=== PATIENT | female | born 1990 | race Caucasian/White ===

== ENCOUNTER 2016-05-31 20:04 | Emergency (ER) | payer MEDICAID ==
--- NOTE | 2016-05-31 20:26 | ER Document Report ---
ED Medical Screen (RME) - General Chief Complaint: Palpitations Stated Complaint: HEART RATE FEELS OFF Time seen by provider: 20:23 Mode of Arrival: Ambulatory Information source: Patient Notes: 26-year-old female complaining of feeling rapid and irregular heartbeat twice tonight. Both episodes lasted less than a minute but were intense. This originally started 3 years ago. She has 2-3 episodes daily but they are minor and mild. I have greeted and performed a rapid initial assessment of this patient. A comprehensive ED assessment, evaluation of the patient, analysis of test results , and completion of the medical decision making process will be conducted by additional ED providers. TRAVEL OUTSIDE OF THE [place] IN LAST 30 DAYS: No - Related Data Allergies/Adverse Reactions: No Known Allergies Allergy (Unverified 09/10/15 01:21) Past Medical History - Past Medical History Cardiac Medical History: Reports: Hx Hypertension Endocrine Medical History: Reports: Hx Hypothyroidism Past Surgical History: Reports: Hx Orthopedic Surgery - Left Knee, Hx Tonsillectomy - Immunizations Hx Diphtheria, Pertussis, Tetanus Vaccination: Yes Physical Exam - Vital signs Vitals: Temp Pulse Resp BP Pulse Ox 98.0 F 101 H 18 127/76 H 100 05/31/16 20:11 05/31/16 20:11 05/31/16 20:11 05/31/16 20:11 05/31/16 20:11 Course - Vital Signs Vital signs: Temp Pulse Resp BP Pulse Ox 98.0 F 101 H 18 127/76 H 100 05/31/16 20:11 05/31/16 20:11 05/31/16 20:11 05/31/16 20:11 05/31/16 20:11
[2016-05-31 21:12] LABS: ABSOLUTE EOSINOPHILS # (AUTO) 0.1 10^3/uL (0.0-0.6); ABSOLUTE LYMPHOCYTES (AUTO) 1.7 10^3/uL (0.5-4.7); ABSOLUTE MONOCYTES (AUTO) 0.5 10^3/uL (0.1-1.4); ABSOLUTE NEUT (AUTO) 3.6 10^3/uL (1.7-8.2); BASOPHILS % (AUTO) 0.5 % (0-2); EOSINOPHILS % (AUTO) 1.9 % (0-6); HEMATOCRIT 36.5 % (36.0-47.0); HEMOGLOBIN 12.3 g/dL (12.0-15.5); HGB HCT DIFFERENCE 0.4; LYMPHOCYTES % (AUTO) 28.6 % (13-45); MEAN CORPUSCULAR HEMOGLOBIN 30.1 pg (27.0-33.4); MEAN CORPUSCULAR HGB CONC 33.7 g/dL (32.0-36.0); MEAN CORPUSCULAR VOLUME 89 fl (80-97); MONOCYTES % (AUTO) 8.6 % (3-13); RED BLOOD COUNT 4.08 10^6/uL (3.72-5.28); SEGMENTED NEUTROPHILS % (AUTO) 60.4 % (42-78)
[2016-05-31 21:23] LABS: ALANINE AMINOTRANSFERASE 22 U/L (9-52); ALBUMIN 4.3 g/dL (3.5-5.0); ALKALINE PHOSPHATASE 45 U/L (38-126); ANION GAP 10 (5-19); ASPARTATE AMINO TRANSFERASE 18 U/L (14-36); BILIRUBIN,TOTAL 0.7 mg/dL (0.2-1.3); BLOOD UREA NITROGEN 10 mg/dL (7-20); CALCIUM 9.4 mg/dL (8.4-10.2); CARBON DIOXIDE 28 mmol/L (22-30); CHLORIDE 103 mmol/L (98-107); CREATININE RESULT 0.75 mg/dL (0.52-1.25); GLUCOSE 98 mg/dL (75-110); MAGNESIUM 2.1 mg/dL (1.6-2.3); SODIUM 141.4 mmol/L (137-145); TOTAL PROTEIN 7.1 g/dL (6.3-8.2)
--- NOTE | 2016-05-31 22:43 | EKG REPORT ---
SEVERITY:- NORMAL ECG - SINUS RHYTHM : Confirmed by: Lizz Campo 31-May-2016 22:42:49
--- NOTE | 2016-05-31 23:20 | ER Document Report ---
ED General - General Chief Complaint: Palpitations Stated Complaint: HEART RATE FEELS OFF Mode of Arrival: Ambulatory Notes: Patient is a 26-year-old female with a past medical history of palpitations that have required use of a beta patt in the past but no current use who presents with an episode of palpitations that lasted for approximately 1 minute just prior to arrival. States that it felt like her heart was "beating out of her chest". States symptoms did resolve spontaneously. She is uncertain if anything triggered her symptoms. States she's had very similar symptoms in the past but they usually resolve after several seconds without intervention. States in the past she has required use of metoprolol which did control her symptoms but she has not been on this medication since moving to [place]. She denies any chest pain, shortness of breath, nausea or vomiting both during the episode and at this time. She does not currently have a primary care doctor. No history of DVT or pulmonary embolus. She does admit that she was smoking just prior to the onset of her symptoms and that she often has to symptoms around use of nicotine or large doses of caffeine. TRAVEL OUTSIDE OF THE [place] IN LAST 30 DAYS: No - Related Data Allergies/Adverse Reactions: No Known Allergies Allergy (Unverified 09/10/15 01:21) Past Medical History - General Information source: Patient - Social History Smoking Status: Current Every Day Smoker Chew tobacco use (# tins/day): No Frequency of alcohol use: Rare Drug Abuse: None Lives with: Spouse/Significant other Family History: Reviewed & Not Pertinent Patient has suicidal ideation: No Patient has homicidal ideation: No - Past Medical History Cardiac Medical History: Reports: Hx Hypertension Endocrine Medical History: Reports: Hx Hypothyroidism Renal/ Medical History: Denies: Hx Peritoneal Dialysis Past Surgical History: Reports: Hx Orthopedic Surgery - Left Knee, Hx Tonsillectomy - Immunizations Hx Diphtheria, Pertussis, Tetanus Vaccination: Yes Review of Systems - Review of Systems Notes: Constitutional: Negative for fever. HENT: Negative for sore throat. Eyes: Negative for visual changes. Cardiovascular: Negative for chest pain. Positive for palpitations Respiratory: Negative for shortness of breath. Gastrointestinal: Negative for abdominal pain, vomiting or diarrhea. Genitourinary: Negative for dysuria. Musculoskeletal: Negative for back pain. Skin: Negative for rash. Neurological: Negative for headaches, weakness or numbness. 10 point ROS negative except as marked above and in HPI. Physical Exam - Vital signs Vitals: Temp Pulse Resp BP Pulse Ox 98.0 F 101 H 18 127/76 H 100 05/31/16 20:11 05/31/16 20:11 05/31/16 20:11 05/31/16 20:11 05/31/16 20:11 Interpretation: Tachycardic Notes: PHYSICAL EXAMINATION: GENERAL: Well-appearing, well-nourished and in no acute distress. HEAD: Atraumatic, normocephalic. EYES: Pupils equal round and reactive to light, extraocular movements intact, sclera anicteric, conjunctiva are normal. ENT: nares patent, oropharynx clear without exudates. Moist mucous membranes. NECK: Normal range of motion, supple without lymphadenopathy LUNGS: Breath sounds clear to auscultation bilaterally and equal. No wheezes rales or rhonchi. HEART: Regular rate and rhythm without murmurs ABDOMEN: Soft, nontender, normoactive bowel sounds. No guarding, no rebound. No masses appreciated. EXTREMITIES: Normal range of motion, no pitting or edema. No cyanosis. NEUROLOGICAL: No focal neurological deficits. Moves all extremities spontaneously and on command. PSYCH: Normal mood, normal affect. SKIN: Warm, Dry, normal turgor, no rashes or lesions noted. Course - Re-evaluation Re-evalutation: 05/31/16 23:18 Patient presents with palpitations but is in no acute distress. Vitals within normal limits at time of arrival. EKG unremarkable with a sinus rhythm. Laboratories are unremarkable. Patient denies any chest pain, shortness of breath, or vomiting. At this time based on exam and history do not suspect a new onset arrhythmia, ACS, acute pulmonary embolus, aortic dissection. Patient encouraged to follow-up with their primary care physician as well as cardiology and a referral has been provided. At this time will discharge with return precautions and follow-up recommendations. Verbal discharge instructions given a the bedside and opportunity for questions given. Medication warnings reviewed. Patient is in agreement with this plan and has verbalized understanding of return precautions and the need for primary care follow-up in the next 24-72 hours. - Vital Signs Vital signs: Temp Pulse Resp BP Pulse Ox 98.6 F 79 16 114/74 99 06/01/16 00:04 06/01/16 00:04 06/01/16 00:04 06/01/16 00:04 06/01/16 00:04 - Laboratory Result Diagrams: 05/31/16 20:35 05/31/16 20:35 - EKG Interpretation by Me Additional EKG results interpreted by me: 05/31/16 23:19 Normal sinus rhythm. Rate 94. No ST elevations or depressions. QTC is 431. No ectopic beats. Discharge - Discharge Clinical Impression: Palpitations Condition: Good Disposition: HOME, SELF-CARE Additional Instructions: Please follow-up closely with cardiology regarding your palpitations. Return if you pass out, have shortness of breath, persistent vomiting, develop significant chest pain, or have any other symptoms that are concerning to you. Referrals: AUDREY REEVES NP [Primary Care Provider] - Follow up as needed BRENNA BECERRA MD [ACTIVE STAFF] - Follow up as needed
[2016-06-01 00:08] VITALS: BP 114/74
== END 2016-06-01 00:07 | disposition home or self-care (01) ==
LOC: ER 20:04
DX: R00.2 Palpitations (principal); F17.200 Nicotine dependence, unspecified, uncomplicated; I10 Essential (primary) hypertension; R00.0 Tachycardia, unspecified
CPT/HCPCS: 36415; 80053; 83735; 84443; 84703; 85025; 93005; 93010; 99285

== ENCOUNTER 2016-07-15 17:58 | Emergency (ER) | payer MEDICAID ==
[2016-07-15] MEDS ORDERED: PROCHLORPERAZINE MALEATE 10 MG TABLET PO ONE (18:47)
[2016-07-15] MEDS ORDERED: DIPHENHYDRAMINE HCL 25 MG CAPSULE PO ONE (18:47)
--- NOTE | 2016-07-15 18:50 | ER Document Report ---
ED Medical Screen (RME) - General Chief Complaint: Headache Stated Complaint: HEADACHE Notes: 26-year-old female patient complaining of headache today in the right temporal area. She is also having pain in the glands in her neck and pain in her right axilla. She is on chronic pain management with OxyContin and oxycodone. She does have tenderness to the right temporal area on palpation. Palpating her neck muscles she states it always hurts there. I have greeted and performed a rapid initial assessment of this patient. A comprehensive ED assessment and evaluation of the patient, analysis of test results and completion of the medical decision making process will be conducted by additional ED providers. TRAVEL OUTSIDE OF THE [place] IN LAST 30 DAYS: No - Related Data Allergies/Adverse Reactions: No Known Allergies Allergy (Verified 07/15/16 18:34) Past Medical History - Past Medical History Cardiac Medical History: Reports: Hx Hypertension Endocrine Medical History: Reports: Hx Hypothyroidism Renal/ Medical History: Denies: Hx Peritoneal Dialysis Past Surgical History: Reports: Hx Orthopedic Surgery - Left Knee, Hx Tonsillectomy - Immunizations Hx Diphtheria, Pertussis, Tetanus Vaccination: Yes Physical Exam - Vital signs Vitals: Temp Pulse Resp BP Pulse Ox 98.6 F 89 16 113/84 99 07/15/16 18:01 07/15/16 18:01 07/15/16 18:01 07/15/16 18:01 07/15/16 18:01 Course - Vital Signs Vital signs: Temp Pulse Resp BP Pulse Ox 98.6 F 89 16 113/84 99 07/15/16 18:01 07/15/16 18:01 07/15/16 18:01 07/15/16 18:01 07/15/16 18:01
[2016-07-15 19:13] LABS: ABSOLUTE EOSINOPHILS # (AUTO) 0.1 10^3/uL (0.0-0.6); ABSOLUTE LYMPHOCYTES (AUTO) 1.6 10^3/uL (0.5-4.7); ABSOLUTE MONOCYTES (AUTO) 0.4 10^3/uL (0.1-1.4); ABSOLUTE NEUT (AUTO) 3.8 10^3/uL (1.7-8.2); BASOPHILS % (AUTO) 0.3 % (0-2); EOSINOPHILS % (AUTO) 1.5 % (0-6); HEMATOCRIT 38.5 % (36.0-47.0); HGB HCT DIFFERENCE 0.5; LYMPHOCYTES % (AUTO) 27.3 % (13-45); MEAN CORPUSCULAR HEMOGLOBIN 29.9 pg (27.0-33.4); MEAN CORPUSCULAR HGB CONC 33.7 g/dL (32.0-36.0); MEAN CORPUSCULAR VOLUME 89 fl (80-97); MONOCYTES % (AUTO) 6.2 % (3-13); RED BLOOD COUNT 4.35 10^6/uL (3.72-5.28); RED CELL DISTRIBUTION WIDTH 12.2 % (11.5-14.0); SEGMENTED NEUTROPHILS % (AUTO) 64.7 % (42-78); WHITE BLOOD COUNT 5.8 10^3/uL (4.0-10.5)
[2016-07-15 19:27] LABS: ALANINE AMINOTRANSFERASE 23 U/L (9-52); ALBUMIN 4.6 g/dL (3.5-5.0); ALKALINE PHOSPHATASE 43 U/L (38-126); ANION GAP 13 (5-19); ASPARTATE AMINO TRANSFERASE 14 U/L (14-36); BILIRUBIN,DIRECT 0.2 mg/dL (0.0-0.4); BILIRUBIN,TOTAL 0.7 mg/dL (0.2-1.3); BLOOD UREA NITROGEN 11 mg/dL (7-20); CALCIUM 9.6 mg/dL (8.4-10.2); CARBON DIOXIDE 28 mmol/L (22-30); CHLORIDE 103 mmol/L (98-107); CREATININE RESULT 0.63 mg/dL (0.52-1.25); GLUCOSE 81 mg/dL (75-110); POTASSIUM 4.1 mmol/L (3.6-5.0); SODIUM 144.2 mmol/L (137-145); TOTAL PROTEIN 7.3 g/dL (6.3-8.2)
--- NOTE | 2016-07-15 20:54 | ER Document Report ---
ED General - General Chief Complaint: Headache Stated Complaint: HEADACHE Notes: Patient is a 26-year-old female without past medical history presents with bilateral anterior cervical lymphadenopathy and sore throat. States symptoms have been present for the past 48 hours. She's been trying ibuprofen with minimal improvement of her discomfort which she does describes a dull, constant aching pain worse on the right versus the left side. Pain is worsened by swallowing. She has not seen her primary care doctor regarding today's concerns. Denies any difficulty breathing or handling food or drink. No trauma to the area. TRAVEL OUTSIDE OF THE [place] IN LAST 30 DAYS: No - Related Data Allergies/Adverse Reactions: No Known Allergies Allergy (Verified 07/15/16 18:34) Past Medical History - General Information source: Patient - Social History Smoking Status: Current Every Day Smoker Frequency of alcohol use: None Drug Abuse: None Lives with: Spouse/Significant other Family History: Reviewed & Not Pertinent Patient has suicidal ideation: No Patient has homicidal ideation: No - Past Medical History Cardiac Medical History: Reports: Hx Hypertension Endocrine Medical History: Reports: Hx Hypothyroidism Renal/ Medical History: Denies: Hx Peritoneal Dialysis Past Surgical History: Reports: Hx Orthopedic Surgery - Left Knee, Hx Tonsillectomy - Immunizations Hx Diphtheria, Pertussis, Tetanus Vaccination: Yes Review of Systems - Review of Systems Notes: Constitutional: Negative for fever. HENT: Positive for sore throat. Eyes: Negative for visual changes. Cardiovascular: Negative for chest pain. Respiratory: Negative for shortness of breath. Gastrointestinal: Negative for abdominal pain, vomiting or diarrhea. Genitourinary: Negative for dysuria. Musculoskeletal: Negative for back pain. Skin: Negative for rash. Neurological: Negative for headaches, weakness or numbness. 10 point ROS negative except as marked above and in HPI. Physical Exam - Vital signs Vitals: Temp Pulse Resp BP Pulse Ox 98.6 F 89 16 113/84 99 07/15/16 18:01 07/15/16 18:01 07/15/16 18:01 07/15/16 18:01 07/15/16 18:01 Interpretation: Normal Notes: PHYSICAL EXAMINATION: GENERAL: Well-appearing, well-nourished and in no acute distress. HEAD: Atraumatic, normocephalic. EYES: Pupils equal round and reactive to light, extraocular movements intact, sclera anicteric, conjunctiva are normal. ENT: nares patent, oropharynx clear without exudates. Moist mucous membranes. NECK: Normal range of motion, bilateral anterior pericervical lymphadenopathy or prominent on the right. It is tender to palpation. Lymph nodes are mobile. LUNGS: Breath sounds clear to auscultation bilaterally and equal. No wheezes rales or rhonchi. HEART: Regular rate and rhythm without murmurs ABDOMEN: Soft, nontender, normoactive bowel sounds. No guarding, no rebound. No masses appreciated. EXTREMITIES: Normal range of motion, no pitting or edema. No cyanosis. NEUROLOGICAL: No focal neurological deficits. Moves all extremities spontaneously and on command. PSYCH: Normal mood, normal affect. SKIN: Warm, Dry, normal turgor, no rashes or lesions noted. Course - Re-evaluation Re-evalutation: 07/15/16 20:53 Patient presents with bilateral anterior cervical lymphadenopathy and sore throat. She is overall very well appearance, vitals within normal limits, no acute findings on exam other than anterior cervical lymphadenopathy. No findings on exam to suggest acute strep pharyngitis. She has no focal neurologic deficits on exam. She notes intermittent right-sided headache that is not present at this time. No indication for further labs or imaging. Suspect likely viral or allergic origin of her anterior cervical lymphadenopathy.At this time will discharge with return precautions and follow- up recommendations. Verbal discharge instructions given a the bedside and opportunity for questions given. Medication warnings reviewed. Patient is in agreement with this plan and has verbalized understanding of return precautions and the need for primary care follow-up in the next 24-72 hours. - Vital Signs Vital signs: Temp Pulse Resp BP Pulse Ox 98.6 F 85 18 106/70 99 07/15/16 18:01 07/15/16 21:15 07/15/16 21:15 07/15/16 21:15 07/15/16 21:15 - Laboratory Result Diagrams: 07/15/16 18:56 07/15/16 18:56 Discharge - Discharge Clinical Impression: Cervical lymphadenopathy, Sore throat Condition: Good Disposition: HOME, SELF-CARE Additional Instructions: Please return to the emergency room immediately if you experience any concerning symptoms including high fevers, severe headache, chest pain, difficulty breathing, abdominal pain, slurred speech, numbness or weakness in your arms or legs, or any other symptom that concerns you. Referrals: PINA CAPELLAN, CARDROOM ATTENDANT-C [Primary Care Provider] - Follow up as needed
[2016-07-15 21:16] VITALS: BP 106/70
== END 2016-07-15 21:16 | disposition home or self-care (01) ==
LOC: ER 17:58
DX: J02.9 Acute pharyngitis, unspecified (principal); R59.0 Localized enlarged lymph nodes; R51 Headache; F17.200 Nicotine dependence, unspecified, uncomplicated; I10 Essential (primary) hypertension; E03.9 Hypothyroidism, unspecified
CPT/HCPCS: 99284; 36415; 84703; 85025; 80053; J3490; S0183

== ENCOUNTER 2016-09-04 13:46 | Emergency (ER) | payer MEDICAID ==
--- NOTE | 2016-09-04 14:32 | ER Document Report ---
ED Medical Screen (RME) - General Chief Complaint: Leg Pain Stated Complaint: LEG PAIN Time Seen by Provider: 09/04/16 14:30 Notes: Patient says that she has had a painful swollen area of the right lower leg, lateral aspect getting worse over the past 3 months. At one time, there was a knot in the center of this painful swollen area. Last night, patient notes prominence in the size of the vein in the anterior medial right thigh. TRAVEL OUTSIDE OF THE [place] IN LAST 30 DAYS: No - Related Data Allergies/Adverse Reactions: No Known Allergies Allergy (Verified 09/04/16 13:56) Past Medical History - Past Medical History Cardiac Medical History: Reports: Hx Hypertension Endocrine Medical History: Reports: Hx Hypothyroidism Renal/ Medical History: Denies: Hx Peritoneal Dialysis Past Surgical History: Reports: Hx Orthopedic Surgery - Left Knee, Hx Tonsillectomy - Immunizations Hx Diphtheria, Pertussis, Tetanus Vaccination: Yes Physical Exam - Vital signs Vitals: Temp Pulse Resp BP Pulse Ox 98.2 F 87 14 118/69 97 09/04/16 13:56 09/04/16 13:56 09/04/16 13:56 09/04/16 13:56 09/04/16 13:56 Course - Vital Signs Vital signs: Temp Pulse Resp BP Pulse Ox 98.2 F 87 14 118/69 97 09/04/16 13:56 09/04/16 13:56 09/04/16 13:56 09/04/16 13:56 09/04/16 13:56
--- NOTE | 2016-09-04 16:38 | ER Document Report ---
ED Extremity Problem, Lower - General Mode of Arrival: Ambulatory Information source: Patient TRAVEL OUTSIDE OF THE [place] IN LAST 30 DAYS: No <SRI CLINTON - Last Filed: 09/04/16 21:35> <HA JIMÉNEZ - Last Filed: 09/05/16 01:10> - General Chief Complaint: Leg Pain Stated Complaint: LEG PAIN Time Seen by Provider: 09/04/16 14:30 Notes: Patient is a 26 year old female presenting to the emergency department for right calf pain. Patient states she feels like something is "crawling up her leg." Patient states she normally has tingling/numbness in her lower extremities bilaterally but the right one has been more painful lately. Patient states she easily bruises and she cannot wear a bra anymore because it causes pain to her ribs/chest. Patient is very thin appearing and states she has not been tested for a connective tissue disorder. Patient has a history of PVCs and she used to take beta-blockers for this but has not been taking them for some time now. Patient states her father has a history of rheumatoid arthritis. Patient has no known allergies. Patient states her primary care physician is [facility]. (SRI CLINTON) - Related Data Allergies/Adverse Reactions: No Known Allergies Allergy (Verified 09/04/16 13:56) Past Medical History - General Information source: Patient - Social History Smoking Status: Never Smoker Cigarette use (# per day): No Chew tobacco use (# tins/day): No Frequency of alcohol use: None Drug Abuse: None Family History: None Patient has suicidal ideation: No Patient has homicidal ideation: No - Past Medical History Cardiac Medical History: Reports: Hx Hypertension Endocrine Medical History: Reports: Hx Hypothyroidism Past Surgical History: Reports: Hx Orthopedic Surgery - Left Knee, Hx Tonsillectomy - Immunizations Hx Diphtheria, Pertussis, Tetanus Vaccination: Yes <SRI CLINTON - Last Filed: 09/04/16 21:35> Review of Systems - Review of Systems Constitutional: No symptoms reported EENT: No symptoms reported Cardiovascular: No symptoms reported Respiratory: No symptoms reported Gastrointestinal: No symptoms reported Genitourinary: No symptoms reported Female Genitourinary: No symptoms reported Musculoskeletal: See HPI Skin: No symptoms reported Hematologic/Lymphatic: No symptoms reported Neurological/Psychological: No symptoms reported -: Yes All other systems reviewed and negative <SRI CLINTON - Last Filed: 09/04/16 21:35> Physical Exam - Vital signs Interpretation: Normal - General General appearance: Appears well, Alert - HEENT Head: Normocephalic, Atraumatic Eyes: Normal Pupils: PERRL - Respiratory Respiratory status: No respiratory distress Chest status: Nontender Breath sounds: Normal Chest palpation: Normal - Cardiovascular Rhythm: Regular Heart sounds: Normal auscultation Murmur: No - Abdominal Inspection: Normal Distension: No distension Bowel sounds: Normal Tenderness: Nontender Organomegaly: No organomegaly - Back Back: Normal, Nontender - Extremities General upper extremity: Normal inspection, Nontender, Normal color, Normal ROM , Normal temperature General lower extremity: Normal inspection, Tender - R calf, Normal color, Normal ROM, Normal temperature, Normal weight bearing - Neurological Neuro grossly intact: Yes Cognition: Normal Orientation: AAOx4 [place] Coma Scale Eye Opening: Spontaneous [place] Coma Scale Verbal: Oriented [place] Coma Scale Motor: Obeys Commands Edl Coma Scale Total: 15 Speech: Normal Motor strength normal: LUE, RUE, LLE, RLE Sensory: Normal - Psychological Associated symptoms: Normal affect, Normal mood - Skin Skin Temperature: Warm Skin Moisture: Dry Skin Color: Normal <HA JIMÉNEZ - Last Filed: 09/05/16 01:10> - Vital signs Vitals: Temp Pulse Resp BP Pulse Ox 98.2 F 87 14 118/69 97 09/04/16 13:56 09/04/16 13:56 09/04/16 13:56 09/04/16 13:56 09/04/16 13:56 Course - Laboratory Result Diagrams: 09/04/16 17:35 09/04/16 17:35 <SRI CLINTON - Last Filed: 09/04/16 21:35> - Laboratory Result Diagrams: 09/04/16 17:35 09/04/16 17:35 - Diagnostic Test Radiology reviewed: Reports reviewed <HA JIMÉNEZ - Last Filed: 09/05/16 01:10> - Re-evaluation Re-evalutation: 09/04 Patient is a 26-year-old female who comes in with calf pain. No evidence for DVT on ultrasound. Patient has features consistent with a possible connective tissue disease. She is instructed to follow-up with her doctor. Patient was worried about blood clot and that was why she came in. No evidence for that today. Stable for discharge. Patient would like a note to return to work today. (HA JIMÉNEZ) - Vital Signs Vital signs: Temp Pulse Resp BP Pulse Ox 98.2 F 91 15 101/69 99 09/04/16 13:56 09/04/16 18:18 09/04/16 18:18 09/04/16 18:18 09/04/16 18:18 - Laboratory Laboratory results interpreted by me: 09/04/16 17:35 Glucose 134 H Discharge <SRI CLINTON - Last Filed: 09/04/16 21:35> <HA JIMÉNEZ - Last Filed: 09/05/16 01:10> - Discharge Clinical Impression: Superficial vein thrombosis Leg pain Qualifiers: Laterality: right Qualified Code(s): M79.604 - Pain in right leg Condition: Stable Disposition: HOME, SELF-CARE Instructions: Leg Pain Nonspecific ([facility]) Additional Instructions: Please talk to your doctor about being tested for a connective tissue disorder. Forms: Return to Work Scribe Attestation: 09/05/16 01:10 I personally performed the services described in the documentation, reviewed and edited the documentation which was dictated to the scribe in my presence, and it accurately records my words and actions. (HA JIMÉNEZ) Scribe Documentation - Scribe Written by Hakan:: Hakan Baugh, 09/04/16 18:56 acting as scribe for :: [place] <SRI CLINTON - Last Filed: 09/04/16 21:35>
[2016-09-04 17:58] LABS: ABSOLUTE EOSINOPHILS # (AUTO) 0.1 10^3/uL (0.0-0.6); ABSOLUTE MONOCYTES (AUTO) 0.3 10^3/uL (0.1-1.4); ABSOLUTE NEUT (AUTO) 3.8 10^3/uL (1.7-8.2); BASOPHILS % (AUTO) 0.6 % (0-2); EOSINOPHILS % (AUTO) 1.3 % (0-6); HEMATOCRIT 42.2 % (36.0-47.0); HEMOGLOBIN 13.8 g/dL (12.0-15.5); HGB HCT DIFFERENCE -0.8; LYMPHOCYTES % (AUTO) 19.6 % (13-45); MEAN CORPUSCULAR HEMOGLOBIN 29.6 pg (27.0-33.4); MEAN CORPUSCULAR HGB CONC 32.7 g/dL (32.0-36.0); MEAN CORPUSCULAR VOLUME 91 fl (80-97); MONOCYTES % (AUTO) 6.6 % (3-13); RED BLOOD COUNT 4.67 10^6/uL (3.72-5.28); RED CELL DISTRIBUTION WIDTH 11.9 % (11.5-14.0); SEGMENTED NEUTROPHILS % (AUTO) 71.9 % (42-78); WHITE BLOOD COUNT 5.2 10^3/uL (4.0-10.5)
--- NOTE | 2016-09-04 18:02 | RADIOLOGY REPORT (SQ) ---
EXAM DESCRIPTION: VENOUS UNILATERAL LOWER COMPLETED DATE/TIME: 09/04/2016 5:50 pm REASON FOR STUDY: Concern for clot in the vein of right leg COMPARISON: None. TECHNIQUE: Dynamic and static whatley scale and color images acquired of the right leg venous system. S elected spectral images acquired with additional compression and augmentation maneuvers. The contrala teral common femoral vein and saphenofemoral junction were also imaged. Images stored on PACS. LIMITATIONS: None. FINDINGS: COMMON FEMORAL: Normal phasicity, compression and augmentation. No visualized echogenic ma terial on whatley scale. No defects on color images. FEMORAL: Normal compression and augmentation. No visualized echogenic material on whatley scale. No defe cts on color images. POPLITEAL: Normal compression, augmentation. No visualized echogenic material on whatley scale. No defec ts on color images. CALF VESSELS: Normal compression, augmentation. No visualized echogenic material on whatley scale. No de fects on color images. GSV and SSV: Partially occlusive right small saphenous vein superficial clot. Greater saphenous varela nt. ANY DEEP VENOUS INSUFFICIENCY: Not evaluated. ANY EVIDENCE OF POPLITEAL CYST: No. OTHER: No other significant finding. CONTRALATERAL COMMON FEMORAL VEIN AND SAPHENOFEMORAL JUNCTION: Normal phasicity, compression and augmentation. No visualized echogenic material on whatley scale. No de fects on color images. IMPRESSION: 1. No DVT in the right lower extremity. 2. Superficial thrombus in the small saphenous vein is noted, nonocclusive clot. TECHNICAL DOCUMENTATION: JOB ID: [id number] [employer]- All Rights Reserved
[2016-09-04 18:03] LABS: APPEARANCE,URINE CLEAR; BILIRUBIN,URINE NEGATIVE (NEGATIVE); GLUCOSE, URINE NEGATIVE (NEGATIVE); KETONES,URINE NEGATIVE (NEGATIVE); LEUKOCYTE ESTERASE,URINE NEGATIVE (NEGATIVE); NITRITE,URINE NEGATIVE (NEGATIVE); PROTEIN,URINE NEGATIVE (NEGATIVE); UROBILINOGEN,URINE NEGATIVE mg/dL (<2.0)
[2016-09-04 18:15] LABS: ANION GAP 13 (5-19); BLOOD UREA NITROGEN 11 mg/dL (7-20); CALCIUM 9.8 mg/dL (8.4-10.2); CARBON DIOXIDE 27 mmol/L (22-30); CHLORIDE 101 mmol/L (98-107); GLUCOSE 134 mg/dL (75-110); POTASSIUM 4.6 mmol/L (3.6-5.0); SODIUM 141.1 mmol/L (137-145)
[2016-09-04 18:20] VITALS: BP 101/69
== END 2016-09-04 18:18 | disposition home or self-care (01) ==
LOC: ER 13:46
DX: I82.811 Embolism and thrombosis of superficial veins of right lower extremity (principal); M79.661 Pain in right lower leg; R20.0 Anesthesia of skin; R20.2 Paresthesia of skin; I10 Essential (primary) hypertension; Z82.61 Family history of arthritis
CPT/HCPCS: 36415; 80048; 81001; 81025; 85025; 93971; 99284

== ENCOUNTER 2016-09-05 16:16 | Emergency (ER) | payer MEDICAID ==
[2016-09-05] MEDS ORDERED: NORMAL SALINE 1000 ML 1,000 ML IV PRN (16:44)
--- NOTE | 2016-09-05 16:47 | ER Document Report ---
ED Medical Screen (RME) - General Chief Complaint: Leg Pain Stated Complaint: LEFT LEG PAIN Time Seen by Provider: 09/05/16 16:43 Mode of Arrival: Ambulatory Information source: Patient TRAVEL OUTSIDE OF THE [place] IN LAST 30 DAYS: No - HPI Patient complains to provider of: Chest pain, leg pain, generalized weakness Onset/Duration: Gradual Quality of pain: Achy Severity: Moderate Pain Level: 3 Associated Symptoms: Body/muscle aches, Chest pain, Shortness of breath, Weakness Exacerbated by: Denies Relieved by: Denies Similar symptoms previously: Yes Recently seen / treated by doctor: Yes Notes: 09/05/16 16:46 Patient is a 26-year-old female who presents to the emergency room complaining of generalized malaise, right-sided chest pain, bilateral lower extremity pain, with nausea, she reports it is painful when she takes a deep breath, so much so that she is no longer wearing a bra because it causes her some much discomfort, she was seen in this emergency room yesterday for right leg pain, had a lower extremity Doppler performed which showed a SVT but no DVT, she denies any cough , cold or congestion, no vomiting or diarrhea, no current , no known tick bites, no recent traveling, no sick contacts - Related Data Allergies/Adverse Reactions: No Known Allergies Allergy (Verified 09/05/16 16:38) Past Medical History - Past Medical History Cardiac Medical History: Reports: Hx Hypertension Endocrine Medical History: Reports: Hx Hypothyroidism Renal/ Medical History: Denies: Hx Peritoneal Dialysis Past Surgical History: Reports: Hx Orthopedic Surgery - Left Knee, Hx Tonsillectomy - Immunizations Hx Diphtheria, Pertussis, Tetanus Vaccination: Yes Physical Exam - Vital signs Vitals: Temp Pulse Resp BP Pulse Ox 97.9 F 76 18 105/75 97 09/05/16 16:21 09/05/16 16:21 09/05/16 16:21 09/05/16 16:21 09/05/16 16:21 Course - Vital Signs Vital signs: Temp Pulse Resp BP Pulse Ox 97.9 F 76 18 105/75 97 09/05/16 16:21 09/05/16 16:21 09/05/16 16:21 09/05/16 16:21 09/05/16 16:21
[2016-09-05 17:27] LABS: ABSOLUTE LYMPHOCYTES (AUTO) 1.1 10^3/uL (0.5-4.7); ABSOLUTE MONOCYTES (AUTO) 0.3 10^3/uL (0.1-1.4); BASOPHILS % (AUTO) 0.5 % (0-2); EOSINOPHILS % (AUTO) 0.8 % (0-6); HEMATOCRIT 43.7 % (36.0-47.0); HEMOGLOBIN 14.3 g/dL (12.0-15.5); HGB HCT DIFFERENCE -0.8; LYMPHOCYTES % (AUTO) 24.4 % (13-45); MEAN CORPUSCULAR HEMOGLOBIN 29.2 pg (27.0-33.4); MEAN CORPUSCULAR HGB CONC 32.7 g/dL (32.0-36.0); MEAN CORPUSCULAR VOLUME 89 fl (80-97); MONOCYTES % (AUTO) 6.2 % (3-13); RED BLOOD COUNT 4.89 10^6/uL (3.72-5.28); RED CELL DISTRIBUTION WIDTH 12.1 % (11.5-14.0); SEGMENTED NEUTROPHILS % (AUTO) 68.1 % (42-78); WHITE BLOOD COUNT 4.4 10^3/uL (4.0-10.5)
[2016-09-05 17:48] LABS: ALANINE AMINOTRANSFERASE 23 U/L (9-52); ALBUMIN 4.6 g/dL (3.5-5.0); ALKALINE PHOSPHATASE 49 U/L (38-126); ANION GAP 9 (5-19); ASPARTATE AMINO TRANSFERASE 16 U/L (14-36); BILIRUBIN,DIRECT 0.3 mg/dL (0.0-0.4); BILIRUBIN,TOTAL 0.9 mg/dL (0.2-1.3); BLOOD UREA NITROGEN 9 mg/dL (7-20); CALCIUM 9.5 mg/dL (8.4-10.2); CARBON DIOXIDE 30 mmol/L (22-30); CHLORIDE 103 mmol/L (98-107); CREATININE RESULT 0.66 mg/dL (0.52-1.25); GLUCOSE 114 mg/dL (75-110); POTASSIUM 4.3 mmol/L (3.6-5.0); SODIUM 142.1 mmol/L (137-145); TOTAL PROTEIN 7.7 g/dL (6.3-8.2)
[2016-09-05 17:50] LABS: C-REACTIVE PROTEIN < 5.0 mg/L (<10.0)
[2016-09-05 18:05] LABS: ERYTHROCYTE SEDIMENTATION RATE 10 mm/hr (0-20)
--- NOTE | 2016-09-05 18:18 | ER Document Report ---
ED General - General Mode of Arrival: Ambulatory TRAVEL OUTSIDE OF THE [place] IN LAST 30 DAYS: No <NAWAF NEGRON - Last Filed: 09/05/16 18:57> <JERIMICK - Last Filed: 09/05/16 20:41> - General Chief Complaint: Leg Pain Stated Complaint: LEFT LEG PAIN Time Seen by Provider: 09/05/16 16:43 Notes: Patient is a 26-year-old female comes to the ED complaining of left leg blotchiness 1 day. The blotchiness is more noticeable in her pale areas per patient. Non-painful, does not spread. Patient complains of chronic numbness/ tingling to her bilateral lower extremities on occasion. Patient states that she has been fatigued lately. Patient complains of chronic chest wall pain, joint pain, back pain, leg pains, & neck pain. Pt was eval'd yesterday for rt LE pain worse than usual and was found to have a SVT. Pt states that the lump has gone away since then on her leg and she no longer has the pain she felt yesterday. She does not like to take deep breaths because she will feel exacerbate the chest wall pain. Pt has been on oxycodone and oxycontin for 2 years (disc issues/scoliosis) in the back. Denies any fever, URI, sore throat, sob/dyspnea at rest, cp at rest, palpitations, syncope, abd pain, dysuria, vaginal discharge, or injury. No recent sick contacts or insect bites. Patient was directed by Dr. Ibrahim to get an eval for ?connective tissue disease by her PCM. Pt states that she stopped by her PCM today who cannot get her in until Monday at 11am. (NAWAF NEGRON) - Related Data Allergies/Adverse Reactions: No Known Allergies Allergy (Verified 09/05/16 16:38) Past Medical History - General Information source: Patient - Social History Smoking Status: Current Some Day Smoker Chew tobacco use (# tins/day): No Frequency of alcohol use: None Drug Abuse: None Family History: None - Past Medical History Cardiac Medical History: Reports: Hx Hypertension Endocrine Medical History: Reports: Hx Hypothyroidism Renal/ Medical History: Denies: Hx Peritoneal Dialysis Past Surgical History: Reports: Hx Orthopedic Surgery - Left Knee, Hx Tonsillectomy - Immunizations Hx Diphtheria, Pertussis, Tetanus Vaccination: Yes <NAWAF NEGRON - Last Filed: 09/05/16 18:57> Review of Systems <NAWAF NEGRON - Last Filed: 09/05/16 18:57> <MICK WILCOX - Last Filed: 09/05/16 20:41> - Review of Systems Notes: REVIEW OF SYSTEMS: CONSTITUTIONAL : Denies fever, chills, or sweats. Denies recent illness. EENT: Denies eye, ear, throat, or mouth pain or symptoms. Denies nasal or sinus congestion or discharge. Denies throat, tongue, or mouth swelling or difficulty swallowing. CARDIOVASCULAR: see hpi RESPIRATORY: see hpi GASTROINTESTINAL: see hpi GENITOURINARY: Denies difficulty urinating, painful urination, burning, frequency, blood in urine, or discharge. FEMALE GENITOURINARY: Denies vaginal bleeding, heavy or abnormal periods, irregular periods. Denies vaginal discharge or odor. MUSCULOSKELETAL: see hpi SKIN: see hpi NEUROLOGICAL: Denies confusion or altered mental status. Denies passing out or loss of consciousness. Denies dizziness or lightheadedness. Denies current headache. Denies weakness or paralysis or loss of use of either side. Denies problems with gait or speech. Denies seizures. ALL OTHER SYSTEMS REVIEWED AND NEGATIVE. Dictation was performed using [employer] voice recognition software (NAWAF NEGRON) Physical Exam <NAWAF NEGRON - Last Filed: 09/05/16 18:57> <MICK WILCOX - Last Filed: 09/05/16 20:41> - Vital signs Vitals: Temp Pulse Resp BP Pulse Ox 97.9 F 76 18 105/75 97 09/05/16 16:21 09/05/16 16:21 09/05/16 16:21 09/05/16 16:21 09/05/16 16:21 Notes: PHYSICAL EXAMINATION: GENERAL: Well-appearing, well-nourished and in no acute distress. Pt did become emotional at times stating she "does not want to be in pain anymore." HEAD: Atraumatic, normocephalic. EYES: Pupils equal round and reactive to light, extraocular movements intact, sclera anicteric, conjunctiva are normal. ENT: EAC clear b/l. TM's intact b/l without erythema, fluid, or perforation. Nares patent and without discharge. oropharynx clear without exudates. No tonsilar hypertrophy or erythema. Moist mucous membranes. No sinus tenderness. NECK: Normal range of motion, supple without lymphadenopathy. No rigidity. No meningismus. Chest: + tenderness to palpation of the chest wall primarily near the sternum, but also on the rt side. Symmetric rise. LUNGS: Breath sounds clear to auscultation bilaterally and equal. No wheezes rales or rhonchi. HEART: Regular rate and rhythm without murmurs, rubs, gallops. ABDOMEN: Soft, nontender, nondistended abdomen. No guarding, no rebound. No masses appreciated. Normal bowel sounds present. No CVA tenderness bilaterally. Musculoskeletal: FROM to passive/active. Strength 5+/5. Back: FROM to passive/active. Non-tender to palp. Strength 5+/5. mild scoliosis. Extremities: No cyanosis, clubbing, or edema b/l. Peripheral pulses 2+. Capillary refill less than 3 seconds. Katherine neg. b/l. No warmth/erythema/ tenderness. NEUROLOGICAL: Cranial nerves grossly intact. Normal speech, normal gait. Normal motor exams. Dec sensation to the medial calf b/l to light touch. Reflexes 2+ b/l peripherally. PSYCH: emotional mood, normal affect. SKIN: Warm, Dry, normal turgor, no rashes or lesions noted. (NAWAF NEGRON) Course - Laboratory Result Diagrams: 09/05/16 17:18 09/05/16 17:18 <NAWAF NEGRON - Last Filed: 09/05/16 18:57> - Laboratory Result Diagrams: 09/05/16 17:18 09/05/16 17:18 <MICK WILCOX - Last Filed: 09/05/16 20:41> - Re-evaluation Re-evalutation: 09/05/16 18:29 Patient is an afebrile, well-hydrated, 26yo female who presents with nonspecific leg/jt/chest pains. Chest wall tenderness on exam. Katherine neg b/l without unilateral swelling or tenderness. Vitals are stable. No acute distress. Mcculloch score: 3 (pre-test probability score of <10% for PE). PERC score: 0 (pre-test probability score of <1%). CBC and CMP are unremarkable. CT of the chest: According to her eval yesterday she had a SVT (discomfort of which has since resolved based on today's H&P). She has an appointment scheduled with her PCM in 2 days. I question if she has any hypersensitivity as she has been on oxycodone and oxycontin for the last 2 years (per pt). Reviewed with her that she may read about the possibility and discuss with her PCM ([facility]) about possible detox plan. She is to also consider connective tissue disease as Dr. Ibrahim recommended as well at her visit yesterday. May have PCM consider EMG as well. After performing a Medical Screening Examination, I estimate there is LOW risk for RUPTURED ESOPHAGUS, PNEUMOTHORAX, PULMONARY EMBOLISM, ACUTE CORONARY SYNDROME, OR THORACIC AORTIC DISSECTION, thus I consider the discharge disposition reasonable. I have reevaluated this patient multiple times and no significant life threatening changes are noted. The patient and I have discussed the diagnosis and risks, and we agree with discharging home with close follow-up. We also discussed returning to the Emergency Department immediately if new or worsening symptoms occur. We have discussed the symptoms which are most concerning (e.g., bloody sputum, worsening pain or shortness of breath) that necessitate immediate return. (NAWAF NEGRON) 09/05/16 CTA read as normal by radiology no acute findings, no chronic findings. Patient 's workup unremarkable, area on her leg where she has SVT does not appear to be infected with no abnormal heat or discoloration or even tenderness to the area. Patient states that she already has a follow-up with her primary care for additional testing, states that she was specifically tested for rheumatoid arthritis because of family history but she has not had an autoimmune panel or any other workup. After discussion with patient, because of her ongoing pains across her chest and in her joints patient will be given a dose of Solu-Medrol, a very short small taper of prednisone, and she will perform her follow-up, I did discuss return precautions as well including swelling of the leg, fever, difficulty breathing, or any other concerning symptoms. Patient states understanding and agreement. (MICK WILCOX) - Vital Signs Vital signs: Temp Pulse Resp BP Pulse Ox 97.9 F 76 18 105/75 97 09/05/16 16:21 09/05/16 16:21 09/05/16 16:21 09/05/16 16:21 09/05/16 16:21 - Laboratory Laboratory results interpreted by me: 09/05/16 17:18 Glucose 114 H Discharge <NAWAF NEGRON - Last Filed: 09/05/16 18:57> <JOSÉ ANTONIOJOLEENMICK - Last Filed: 09/05/16 20:41> - Discharge Clinical Impression: Discoloration of skin Chest pain Qualifiers: Chest pain type: unspecified Qualified Code(s): R07.9 - Chest pain, unspecified Joint pain Qualifiers: Joint pain location: unspecified Qualified Code(s): M25.50 - Pain in unspecified joint Condition: Stable Disposition: HOME, SELF-CARE Additional Instructions: Your workup shows no acute abnormality. Take the prednisone as directed. Continue current medications. Follow up with your Provider as planned. Consider autoimmune and connective tissue disorder workup and referral. Return to the ED for any concerning or worsening symptoms - fever, difficulty breathing, leg swelling, etc. Prescriptions: Prednisone [Deltasone 10 mg Tablet] 10 mg PO ASDIR PRN #21 tablet PRN Reason:
--- NOTE | 2016-09-05 19:33 | RADIOLOGY REPORT (SQ) ---
EXAM DESCRIPTION: CTA CHEST COMPLETED DATE/TIME: 09/05/2016 7:22 pm REASON FOR STUDY: SOB COMPARISON: None. TECHNIQUE: CT scan of the chest performed using helical scanning technique with dynamic intravenous contrast injection. Images reviewed with lung, soft tissue and bone windows. Reconstructed coronal and sagittal MPR images reviewed. Additional 3 dimensional post-processing performed to develop Maximal Intensity Projection images (ID P). All images stored on PACS. All CT scanners at this facility use dose modulation, iterative reconstruction, and/or weight based d osing when appropriate to reduce radiation dose to as low as reasonably achievable (ALARA). [facility]: Dose Right [facility]: CareDose [facility]: Dose Right [facility]: Teradose 4D [facility]: Bitcast CONTRAST TYPE AND DOSE: contrast/concentration: Isovue 370.00 mg/ml; Total Contrast Delivered: 62.0 ml; Total Saline Delivered: 100.0 ml RENAL FUNCTION: GFR > 60. RADIATION DOSE: 27.55 mGy. LIMITATIONS: None. FINDINGS: LUNGS AND PLEURA: No masses, infiltrates, pneumothorax. No pleural effusions, calcificati ons. AORTA AND GREAT VESSELS: No aneurysm or dissection. HEART: No pericardial effusion. PULMONARY ARTERIES: No emboli visualized in the main pulmonary arteries or the segmental branches. HILAR AND MEDIASTINAL STRUCTURES: No identified masses or abnormal nodes. HARDWARE: None in the chest. UPPER ABDOMEN: No significant findings. Limited exam. THYROID AND OTHER SOFT TISSUES: No masses. No adenopathy. BONES: No acute or significant finding. 3D MIPS: Confirm above findings. OTHER: No other significant finding. IMPRESSION: No emboli visualized in the main pulmonary arteries or the segmental branches. TECHNICAL DOCUMENTATION: JOB ID: [id number] Quality ID # [id number]: Final reports with documentation of one or more dose reduction techniques (e.g., Au tomated exposure control, adjustment of the mA and/or kV according to patient size, use of iterative reconstruction technique) 2010 [employer]- All Rights Reserved
[2016-09-05] MEDS ORDERED: METHYLPREDNISOLONE INJ 125 MG/2 ML SDV IV ONE (20:05)
[2016-09-05 21:12] VITALS: BP 95/62
== END 2016-09-05 21:11 | disposition home or self-care (01) ==
LOC: ER 16:16
DX: L98.8 Other specified disorders of the skin and subcutaneous tissue (principal); R07.9 Chest pain, unspecified; M25.50 Pain in unspecified joint; M54.9 Dorsalgia, unspecified; M79.605 Pain in left leg; M79.604 Pain in right leg; M54.2 Cervicalgia; F17.210 Nicotine dependence, cigarettes, uncomplicated; I10 Essential (primary) hypertension; E03.9 Hypothyroidism, unspecified; M41.9 Scoliosis, unspecified
CPT/HCPCS: 99284; 96361; 96374; 36415; 85025; 85652; 86140; 80053; 71275; J2930; J7030

== ENCOUNTER 2016-10-27 13:55 | Emergency (ER) | payer MEDICAID ==
[2016-10-27 14:06] VITALS: BP 123/73
--- NOTE | 2016-10-27 14:30 | ER Document Report ---
ED Medical Screen (RME) - General Chief Complaint: Abdominal Pain Stated Complaint: ABDOMINAL PAIN Time Seen by Provider: 10/27/16 14:04 Mode of Arrival: Ambulatory Information source: Patient TRAVEL OUTSIDE OF THE [place] IN LAST 30 DAYS: No - HPI Patient complains to provider of: Abdominal pain Onset: Yesterday Notes: 10/27/16 14:29 Patient is a 26-year-old female who presents to the emergency room complaining of pain in the right lower portion of her abdomen that started yesterday and increased today, it is associated with nausea but no vomiting or diarrhea, she does have crampy lower abdominal pain at times, and reports a sensation of something popping area earlier today, causing her to require pulling the car over to the side of the road just prior to coming to the emergency room - Related Data Allergies/Adverse Reactions: No Known Allergies Allergy (Verified 10/27/16 14:02) Past Medical History - Past Medical History Cardiac Medical History: Reports: Hx Hypertension Endocrine Medical History: Reports: Hx Hypothyroidism Renal/ Medical History: Denies: Hx Peritoneal Dialysis Past Surgical History: Reports: Hx Orthopedic Surgery - Left Knee, Hx Tonsillectomy - Immunizations Hx Diphtheria, Pertussis, Tetanus Vaccination: Yes Physical Exam - Vital signs Vitals: Temp Pulse Resp BP Pulse Ox 98.7 F 88 16 123/73 99 10/27/16 14:02 10/27/16 14:02 10/27/16 14:02 10/27/16 14:02 10/27/16 14:02 Course - Vital Signs Vital signs: Temp Pulse Resp BP Pulse Ox 98.7 F 88 16 123/73 99 10/27/16 14:02 10/27/16 14:02 10/27/16 14:02 10/27/16 14:02 10/27/16 14:02
[2016-10-27 14:52] LABS: ABSOLUTE EOSINOPHILS # (AUTO) 0.1 10^3/uL (0.0-0.6); ABSOLUTE LYMPHOCYTES (AUTO) 1.6 10^3/uL (0.5-4.7); ABSOLUTE MONOCYTES (AUTO) 0.4 10^3/uL (0.1-1.4); ABSOLUTE NEUT (AUTO) 3.1 10^3/uL (1.7-8.2); BASOPHILS % (AUTO) 0.5 % (0-2); EOSINOPHILS % (AUTO) 1.2 % (0-6); HEMATOCRIT 40.6 % (36.0-47.0); HEMOGLOBIN 13.9 g/dL (12.0-15.5); HGB HCT DIFFERENCE 1.1; LYMPHOCYTES % (AUTO) 31.1 % (13-45); MEAN CORPUSCULAR HEMOGLOBIN 30.5 pg (27.0-33.4); MEAN CORPUSCULAR HGB CONC 34.1 g/dL (32.0-36.0); MEAN CORPUSCULAR VOLUME 90 fl (80-97); MONOCYTES % (AUTO) 7.1 % (3-13); RED BLOOD COUNT 4.54 10^6/uL (3.72-5.28); RED CELL DISTRIBUTION WIDTH 12.3 % (11.5-14.0); SEGMENTED NEUTROPHILS % (AUTO) 60.1 % (42-78); WHITE BLOOD COUNT 5.2 10^3/uL (4.0-10.5)
[2016-10-27 14:58] LABS: APPEARANCE,URINE CLEAR; BILIRUBIN,URINE NEGATIVE (NEGATIVE); GLUCOSE, URINE NEGATIVE (NEGATIVE); KETONES,URINE NEGATIVE (NEGATIVE); LEUKOCYTE ESTERASE,URINE NEGATIVE (NEGATIVE); NITRITE,URINE NEGATIVE (NEGATIVE); PROTEIN,URINE NEGATIVE (NEGATIVE); URINE SPECIFIC GRAVITY 1.012; UROBILINOGEN,URINE NEGATIVE mg/dL (<2.0)
[2016-10-27 15:08] LABS: ALANINE AMINOTRANSFERASE 22 U/L (9-52); ALBUMIN 4.9 g/dL (3.5-5.0); ALKALINE PHOSPHATASE 50 U/L (38-126); ANION GAP 12 (5-19); ASPARTATE AMINO TRANSFERASE 31 U/L (14-36); BILIRUBIN,DIRECT 0.3 mg/dL (0.0-0.4); BLOOD UREA NITROGEN 9 mg/dL (7-20); CALCIUM 9.3 mg/dL (8.4-10.2); CARBON DIOXIDE 26 mmol/L (22-30); CHLORIDE 103 mmol/L (98-107); CREATININE RESULT 0.64 mg/dL (0.52-1.25); GLUCOSE 99 mg/dL (75-110); LIPASE 47.4 U/L (23-300); POTASSIUM 3.9 mmol/L (3.6-5.0); TOTAL PROTEIN 8.3 g/dL (6.3-8.2)
[2016-10-27] MEDS ORDERED: ONDANSETRON 4 MG TAB.RAPDIS SL ONE (15:59)
[2016-10-27] MEDS ORDERED: KETOROLAC TROMETHAMINE 60 MG/2 ML SDV IM ONE (15:59)
[2016-10-27] MEDS ORDERED: HYDROCODONE/ACETAMINOPHEN 5-325 MG TABLET PO ONE (16:02)
--- NOTE | 2016-10-27 19:56 | RADIOLOGY REPORT (SQ) ---
EXAM DESCRIPTION: U/S NON OB PEL TV W/DOPPLER COMPLETED DATE/TIME: 10/27/2016 7:41 pm REASON FOR STUDY: bilateral pelvic pain COMPARISON: None. TECHNIQUE: Dynamic and static grayscale images acquired of the pelvis via transvaginal approach and recorded on PACS. Additional selected color Doppler and spectral images recorded. LIMITATIONS: None. FINDINGS: UTERUS: Contour normal. No mass. ENDOMETRIAL STRIPE: No focal or generalized thickening. No masses. CERVIX: No nabothian cysts. RIGHT OVARY: No abnormal masses. RIGHT OVARY DOPPLER: Normal arterial vascular flow without evidence for torsion. LEFT OVARY: Complex cyst seen in the left ovary with multiple septi measuring 3.0 x 2.9 x 2.5 cm. LEFT OVARY DOPPLER: Normal arterial vascular flow without evidence for torsion. FREE FLUID: None noted. OTHER: No other significant finding. MEASUREMENTS: UTERUS: 9.1 x 4.8 x 4.2 cm ENDOMETRIAL STRIPE: 13 mm RIGHT OVARY: 2.0 x 2.4 x 2.2 cm LEFT OVARY: 4.3 x 3.5 x 3.2 cm IMPRESSION: Complex left ovarian cyst with multiple set they measuring 3.0 x 2.9 x 2.5 cm. Otherwis e unremarkable study. Follow-up recommendations below. COMMENT: Followup of asymptomatic indeterminate cysts detected by ultrasound in POSTMENOPAUSAL terese ents Findings suggestive of but not classic for hemorrhagic cyst, endometrioma or dermoid: *Consider surgical evaluation Single thin septation or focal wall calcification: *Same as simple cyst, based on size Multiple septations in a cyst: *Consider surgical evaluation Nodule in a cyst: *Consider surgical evaluation or MRI if no blood flow in nodule *Consider surgical evaluation if blood flow in nodule Note: If cyst is clinically symptomatic or otherwise concerning, other followup may be warranted. Menopause is considered age 50 by radiologist unless age of last period is known. Based on recommenda tions of the Society for Radiologists in Ultrasound Consensus Conference Statement 2010 on management of asymptomatic ovarian and other adnexal cysts imaged at ultrasound. TECHNICAL DOCUMENTATION: JOB ID: [id number] [employer]- All Rights Reserved
[2016-10-27] MEDS ORDERED: LIDOCAINE 1% INJ-PF (10 MG/ML) 30 ML SDV INJ ONE (20:09)
[2016-10-27] MEDS ORDERED: AZITHROMYCIN 250 MG TABLET PO ONE (20:09)
[2016-10-27] MEDS ORDERED: CEFTRIAXONE INJ 250 MG VIAL IM ONE (20:09)
--- NOTE | 2016-10-27 20:15 | ER Document Report ---
ED GI/ - General Chief Complaint: Abdominal Pain Stated Complaint: ABDOMINAL PAIN Time Seen by Provider: 10/27/16 14:04 Mode of Arrival: Ambulatory TRAVEL OUTSIDE OF THE [place] IN LAST 30 DAYS: No - HPI Patient complains to provider of: Pelvic pain, Vaginal discharge Onset: Yesterday Quality of pain: Sharp Severity at maximum: Moderate Severity in ED: Mild Pain Level: 2 Location: Pelvis - right Vaginal bleeding (Compared to normal period): None Associated symptoms: Vaginal discharge - pel, Other - pelvic pain worse on the right Exacerbated by: Movement, Walking Relieved by: Denies Similar symptoms previously: No Recently seen / treated by doctor: No - Related Data Allergies/Adverse Reactions: No Known Allergies Allergy (Verified 10/27/16 14:02) Past Medical History - General Information source: Patient - Social History Smoking Status: Current Every Day Smoker Chew tobacco use (# tins/day): No Frequency of alcohol use: None Drug Abuse: None Lives with: Family Family History: None Patient has suicidal ideation: No Patient has homicidal ideation: No - Past Medical History Cardiac Medical History: Reports: Hx Hypertension Pulmonary Medical History: Reports: None Neurological Medical History: Reports: None Endocrine Medical History: Reports: Hx Hypothyroidism Renal/ Medical History: Reports: Hx Ovarian Cysts Malignancy Medical History: Reports: None GI Medical History: Reports: None Musculoskeltal Medical History: Reports None Skin Medical History: Reports None Psychiatric Medical History: Reports: None Traumatic Medical History: Reports: None Infectious Medical History: Reports: None Past Surgical History: Reports: Hx Orthopedic Surgery - Left Knee, Hx Tonsillectomy - Immunizations Hx Diphtheria, Pertussis, Tetanus Vaccination: Yes Review of Systems - Review of Systems Constitutional: No symptoms reported EENT: No symptoms reported Cardiovascular: No symptoms reported Respiratory: No symptoms reported Gastrointestinal: Abdominal pain Genitourinary: No symptoms reported Female Genitourinary: Vaginal discharge, Other - pelvic pain Musculoskeletal: No symptoms reported Skin: No symptoms reported Hematologic/Lymphatic: No symptoms reported Neurological/Psychological: No symptoms reported -: Yes All other systems reviewed and negative Physical Exam - Vital signs Vitals: Temp Pulse Resp BP Pulse Ox 98.7 F 88 16 123/73 99 10/27/16 14:02 10/27/16 14:02 10/27/16 14:02 10/27/16 14:02 10/27/16 14:02 Interpretation: Normal - General General appearance: Appears well, Alert - HEENT Head: Normocephalic, Atraumatic Eyes: Normal Pupils: PERRL - Respiratory Respiratory status: No respiratory distress Chest status: Nontender Breath sounds: Normal Chest palpation: Normal - Cardiovascular Rhythm: Regular Heart sounds: Normal auscultation Murmur: No - Abdominal Inspection: Normal Distension: No distension Bowel sounds: Normal Tenderness: Nontender Organomegaly: No organomegaly - Genitourinary External exam: Normal Speculum exam: Cervix closed, Vaginal discharge - green Vaginal bleeding: None Bimanuel exam: Adnexal mass - Back Back: Normal, Nontender - Extremities General upper extremity: Normal inspection, Nontender, Normal color, Normal ROM , Normal temperature General lower extremity: Normal inspection, Nontender, Normal color, Normal ROM , Normal temperature, Normal weight bearing. No: Katherine's sign - Neurological Neuro grossly intact: Yes Cognition: Normal Orientation: AAOx4 Del Coma Scale Eye Opening: Spontaneous Krebs Coma Scale Verbal: Oriented Del Coma Scale Motor: Obeys Commands Krebs Coma Scale Total: 15 Speech: Normal Motor strength normal: LUE, RUE, LLE, RLE Sensory: Normal - Psychological Associated symptoms: Normal affect, Normal mood - Skin Skin Temperature: Warm Skin Moisture: Dry Skin Color: Normal Course - Re-evaluation Re-evalutation: 10/27/16 21:50discussed lab results and ultrasound results with patient and written report given to patient for follow up. - Vital Signs Vital signs: Temp Pulse Resp BP Pulse Ox 98.7 F 88 16 123/73 99 10/27/16 14:02 10/27/16 14:02 10/27/16 14:02 10/27/16 14:02 10/27/16 14:02 - Laboratory Result Diagrams: 10/27/16 14:42 10/27/16 14:42 Laboratory results interpreted by me: 10/27/16 14:42 Total Protein 8.3 H - Diagnostic Test Radiology reviewed: Image reviewed, Reports reviewed Discharge - Discharge Clinical Impression: Pelvic pain, Vaginal discharge Ovarian cyst Qualifiers: Laterality: left Qualified Code(s): N83.202 - Unspecified ovarian cyst, left side Condition: Stable Disposition: HOME, SELF-CARE Additional Instructions: PELVIC PAIN: There are many causes of pain in the pelvic area. The cause could be the tubes, ovaries, uterus, intestines, appendix, pelvic muscles and connective tissue, or the urinary tract. The cause of your pelvic pain is not clear. However, it seems safe to treat you outside the hospital. If the pain sounds like a temporary problem, we sometimes wait to see if it goes away. Other patients may need additional tests, such as pelvic ultrasound or cultures. Conditions may change. Call us or come back for reexamination if any problems occur, such as: (1) Pain that becomes more severe, steady, or becomes concentrated in one specific area. Also, pain that is more severe with movement or coughing. (2) Vomiting that persists or becomes more frequent. (3) Blood in the vomitus, urine, or bowel movements. Blood in the stool may have a tarry or black appearance. (4) Shaking chills or fever greater than 100 degrees. (5) The abdomen becomes more distended or swollen. (6) Bowel movements cease. (7) Heavy vaginal bleeding. Ovarian Cyst Your examination shows the presence of an ovarian cyst. This is a ball of fluid attached to the ovary. Ovarian cysts in women of child-bearing age are usually innocent. However, the cyst may cause pain when it grows or bursts. An innocent ovarian cyst will usually go away by itself. When the cyst becomes painful, you should rest. Pain medication may be required. Some women find a hot water bottle soothing. The pain usually resolves within one or two days. After menopause, an ovarian cyst may mean a tumor, and requires more aggressive evaluation -- usually surgery is recommended to remove or biopsy the cyst. A very large cyst requires evaluation at any age. Most cysts (even the innocent ones) require follow-up examination. Call the doctor or return at any time if the pain increases significantly, if you become faint, or if you experience vaginal bleeding. CEPHALOSPORINS: An antibiotic of the cephalosporin class has been prescribed. This type of antibiotic covers a wide variety of infections, including those of the skin, lungs, middle ear, and urinary tract. This antibiotic is somewhat similar to the penicillin family. In rare cases , a person who is allergic to penicillin will also be allergic to this medication. If you have had a severe allergic reaction to penicillin, and have not taken this antibiotic since that time, notify your doctor. Antibiotics which cover many germs ("broad spectrum" antibiotics) are more likely to cause diarrhea or "yeast" infections. Women prone to vaginal yeast problems may suffer an attack after taking this antibiotic. In infants, oral thrush (white spots "stuck" on the cheek) or yeast diaper rash may result. See your doctor if these problems occur. Call the doctor at once if you develop hives, itching, shortness of breath , or lightheadedness. AZITHROMYCIN: Azithromycin (Zithromax) is a broad spectrum antibiotic in the same class as erythromycin. It can treat a variety of bacterial infections, but is most frequently used for respiratory infections. Azithromycin is extremely long-lasting. It accumulates in body tissues and continues to kill bacteria for many days. In order to improve absorption, Azithromycin should be taken at least one hour before or two hours after a meal. It does not have the same strong tendency to upset the stomach as erythromycin and is usually very well tolerated. Patients who have had a rash or other true allergic reactions to erythromycin should not take this medication. Call if you develop gastrointestinal distress, severe diarrhea, rash, hives, itching, or shortness of breath. FOLLOW-UP CARE: If you have been referred to a physician for follow-up care, call the physician s office for an appointment as you were instructed or within the next two days. If you experience worsening or a significant change in your symptoms, notify the physician immediately or return to the Emergency Department at any time for re-evaluation. [employer] tomorrow and schedule follow-up appointment for your ovarian cyst. Please call [phone] before 10:00 PM for the results of your GC and chlamydia test or after 10:00 in the morning Forms: Return to Work Referrals: [facility] [Provider Group] - Follow up as needed
[2016-10-27 20:40] LABS: CHLAM PCR NOT DETECTED (NOT DETECT)
== END 2016-10-27 21:22 | disposition home or self-care (01) ==
LOC: ER 13:55
DX: N83.202 Unspecified ovarian cyst, left side (principal); R10.2 Pelvic and perineal pain; N89.8 Other specified noninflammatory disorders of vagina; F17.200 Nicotine dependence, unspecified, uncomplicated
CPT/HCPCS: 99284; 36415; 87086; 87210; 84702; 83690; 85025; 80053; 81001; 87491; 87591; 76830; 93976; S0119

== ENCOUNTER 2017-03-03 03:56 | Emergency (ER) | payer MEDICAID ==
[2017-03-03] MEDS ORDERED: KETOROLAC TROMETHAMINE INJ/PF 30 MG/1 ML SDV IV ONE (04:40)
[2017-03-03] MEDS ORDERED: NORMAL SALINE 1000 ML 1,000 ML IV ONE (04:41)
[2017-03-03] MEDS ORDERED: ONDANSETRON HCL INJ/PF 4 MG/2 ML SDV IV ONE (04:41)
--- NOTE | 2017-03-03 04:43 | ER Document Report ---
ED GI/ - General Chief Complaint: Abdominal Pain Stated Complaint: ABDOMINAL PAIN Time Seen by Provider: 03/03/17 04:20 Notes: Patient is a 26-year-old female that comes emergency department for chief complaint of right sided abdominal pain, she states pain has been present since last Monday, last Monday [facility]), she states that she only had bleeding for 3 days after and has stopped bleeding but she has had pain that will not stop. She states she feels swollen. She reports nausea but denies vomiting. She denies fever, dysuria. Past medical history of lower back injury after accident , takes oxycodone daily for pain, is not on a stool softener. She had a bowel movement 2 days ago which was normal for her. She normally has one every few days. TRAVEL OUTSIDE OF THE [place] IN LAST 30 DAYS: No - Related Data Allergies/Adverse Reactions: ketorolac [From Toradol] Adverse Reaction (Verified 03/03/17 05:27) NSAIDS (Non-Steroidal Anti-Inflamma Adverse Reaction (Verified 03/03/17 05:27) Home Medications: Current Home Medications Oxycodone HCl 5 mg PO Q6HP PRN 03/03/17 [History] Oxycodone HCl [Oxycontin] 1 tab PO Q12H 03/03/17 [History] Past Medical History - General Information source: Patient - Social History Smoking Status: Never Smoker Frequency of alcohol use: None Drug Abuse: None Lives with: Family Family History: None Patient has suicidal ideation: No Patient has homicidal ideation: No - Past Medical History Cardiac Medical History: Reports: Hx Hypertension Endocrine Medical History: Reports: Hx Hypothyroidism Renal/ Medical History: Reports: Hx Ovarian Cysts. Denies: Hx Peritoneal Dialysis Past Surgical History: Reports: Hx Orthopedic Surgery - Left Knee, Hx Tonsillectomy - Immunizations Hx Diphtheria, Pertussis, Tetanus Vaccination: Yes Review of Systems - Review of Systems Constitutional: No symptoms reported EENT: No symptoms reported Cardiovascular: No symptoms reported Respiratory: No symptoms reported Gastrointestinal: See HPI Genitourinary: See HPI Female Genitourinary: See HPI Musculoskeletal: No symptoms reported Skin: No symptoms reported Hematologic/Lymphatic: No symptoms reported Neurological/Psychological: No symptoms reported Physical Exam - Vital signs Vitals: Temp Pulse Resp BP Pulse Ox 97.8 F 88 18 130/72 H 99 03/03/17 03:56 03/03/17 03:56 03/03/17 03:56 03/03/17 03:56 03/03/17 03:56 Interpretation: Normal - General General appearance: Appears well, Alert In distress: None - HEENT Head: Normocephalic, Atraumatic Eyes: Normal Pupils: PERRL - Respiratory Respiratory status: No respiratory distress Chest status: Nontender Breath sounds: Normal Chest palpation: Normal - Cardiovascular Rhythm: Regular Heart sounds: Normal auscultation Murmur: No - Abdominal Inspection: Normal Distension: No distension. No: Distended Bowel sounds: Normal Tenderness: Tender - Generalized tenderness over the upper and lower abdomen, nonspecific, no guarding. No: Guarding Organomegaly: No organomegaly - Back Back: Normal, Nontender. No: Tender - Extremities General upper extremity: Normal inspection, Nontender, Normal color, Normal ROM , Normal temperature General lower extremity: Normal inspection, Nontender, Normal color, Normal ROM , Normal temperature, Normal weight bearing. No: Katherine's sign - Neurological Neuro grossly intact: Yes Cognition: Normal Orientation: AAOx4 [place] Coma Scale Eye Opening: Spontaneous Del Coma Scale Verbal: Oriented Del Coma Scale Motor: Obeys Commands Del Coma Scale Total: 15 Speech: Normal Motor strength normal: LUE, RUE, LLE, RLE Sensory: Normal - Psychological Associated symptoms: Normal affect, Normal mood - Skin Skin Temperature: Warm Skin Moisture: Dry Skin Color: Normal Course - Re-evaluation Re-evalutation: CBC, chemistry, urinalysis unremarkable. HCG is low as expected. Suspect this is trending downwards. Acute abdominal series shows constipation but no concerning postoperative abnormalities. Ultrasound showing retained products at 2.8 cm, could also be clot. No fever or concerning vital signs suggesting endometritis. Patient is well-appearing on examination. Called and spoke with Dr. Laguna, [employer] on-call, recommendation for patient is to take Cytotec 600 mcg tonight, if she does not have significant results she takes the second dose tomorrow night. She is also supposed to follow-up with [facility] closely. Discussed return precautions in detail with patient after discussing workup and plan thoroughly. Patient states understanding and agreement. - Vital Signs Vital signs: Temp Pulse Resp BP Pulse Ox 97.8 F 88 18 106/67 100 03/03/17 03:56 03/03/17 03:56 03/03/17 03:56 03/03/17 06:01 03/03/17 06:01 - Laboratory Result Diagrams: 03/03/17 05:20 03/03/17 05:20 Laboratory results interpreted by me: 03/03/17 03/03/17 04:20 05:20 Beta HCG, Quant 1146.50 H Urine Blood SMALL H Discharge - Discharge Clinical Impression: Post-op pain Abdominal pain Qualifiers: Abdominal location: generalized Qualified Code(s): R10.84 - Generalized abdominal pain Condition: Stable Disposition: HOME, SELF-CARE Additional Instructions: Your ultrasound shows what appears to be retained products versus clot in the uterus. I have spoken to Dr. Laguna, [employer], her recommendation is for you to take the prescribed Cytotec to pass this and avoid additional complication. Take as prescribed, call and perform a very close follow-up with [facility] for additional monitoring and treatment. Also take the stool softener as prescribed. Return if you worsen in anyway including severe pain, fever, vomiting, heavy bleeding with lightheadedness or passing out, or if something is not right. Prescriptions: Docusate Sodium [Colace 100 mg Capsule] 100 mg PO ASDIR PRN #30 capsule PRN Reason: Misoprostol [Cytotec 0.2 mg Tablet] 600 mcg PO ASDIR PRN #6 tablet PRN Reason:
[2017-03-03 04:54] LABS: APPEARANCE,URINE CLEAR; BILIRUBIN,URINE NEGATIVE (NEGATIVE); GLUCOSE, URINE NEGATIVE (NEGATIVE); KETONES,URINE NEGATIVE (NEGATIVE); LEUKOCYTE ESTERASE,URINE NEGATIVE (NEGATIVE); NITRITE,URINE NEGATIVE (NEGATIVE); PROTEIN,URINE NEGATIVE (NEGATIVE); URINE SPECIFIC GRAVITY 1.006; UROBILINOGEN,URINE NEGATIVE mg/dL (<2.0)
[2017-03-03 05:31] LABS: ABSOLUTE EOSINOPHILS # (AUTO) 0.1 10^3/uL (0.0-0.6); ABSOLUTE LYMPHOCYTES (AUTO) 2.1 10^3/uL (0.5-4.7); ABSOLUTE MONOCYTES (AUTO) 0.5 10^3/uL (0.1-1.4); ABSOLUTE NEUT (AUTO) 4.2 10^3/uL (1.7-8.2); BASOPHILS % (AUTO) 0.3 % (0-2); EOSINOPHILS % (AUTO) 1.7 % (0-6); HEMATOCRIT 38.5 % (36.0-47.0); HEMOGLOBIN 13.2 g/dL (12.0-15.5); HGB HCT DIFFERENCE 1.1; LYMPHOCYTES % (AUTO) 30.3 % (13-45); MEAN CORPUSCULAR HEMOGLOBIN 30.4 pg (27.0-33.4); MEAN CORPUSCULAR HGB CONC 34.3 g/dL (32.0-36.0); MEAN CORPUSCULAR VOLUME 89 fl (80-97); MONOCYTES % (AUTO) 7.7 % (3-13); RED BLOOD COUNT 4.34 10^6/uL (3.72-5.28); RED CELL DISTRIBUTION WIDTH 12.4 % (11.5-14.0)
[2017-03-03 05:56] LABS: ALANINE AMINOTRANSFERASE 38 U/L (9-52); ALBUMIN 4.6 g/dL (3.5-5.0); ALKALINE PHOSPHATASE 56 U/L (38-126); ANION GAP 11 (5-19); ASPARTATE AMINO TRANSFERASE 25 U/L (14-36); BILIRUBIN,DIRECT 0.4 mg/dL (0.0-0.4); BILIRUBIN,TOTAL 0.6 mg/dL (0.2-1.3); BLOOD UREA NITROGEN 11 mg/dL (7-20); CALCIUM 9.6 mg/dL (8.4-10.2); CARBON DIOXIDE 28 mmol/L (22-30); CHLORIDE 103 mmol/L (98-107); CREATININE RESULT 0.63 mg/dL (0.52-1.25); GLUCOSE 97 mg/dL (75-110); POTASSIUM 3.7 mmol/L (3.6-5.0); SODIUM 142.2 mmol/L (137-145); TOTAL PROTEIN 7.6 g/dL (6.3-8.2)
--- NOTE | 2017-03-03 06:23 | RADIOLOGY REPORT (SQ) ---
EXAM DESCRIPTION: U/S NON OB PEL TV W/DOPPLER CLINICAL HISTORY: 26 years, Female, abd pain; s/p D C COMPARISON: None. TECHNIQUE: Transvaginal LIMITATIONS: None. FINDINGS: 8.8 x 6.2 x 4.4 cm uterus with thickened heterogeneous 1.0 cm endometrial cavity containing 2.8 x 1.9 x 0.5 cm echogenic heterogeneous material without significant associated vascularity consistent with retained products of conception this patient with described recent dilatation and curettage procedure. Cervical length is 3 cm. 3.9 several right ovarian 3.2 cm left ovary appear of normal size, shape, echotexture, and vascularity. No significant free fluid. IMPRESSION: Retained products of conception/clot within the endometrial cavity measures up to 2.8 cm. 2011 [employer]- All Rights Reserved
--- NOTE | 2017-03-03 07:26 | RADIOLOGY REPORT (SQ) ---
EXAM DESCRIPTION: ACUTE ABDOMEN SERIES CLINICAL HISTORY: 26 years, Female, mid abd pain, nausea, post op COMPARISON: None. TECHNIQUE: Three views LIMITATIONS: None. FINDINGS: Adequate lung volumes, clear parenchyma, and normal cardiac silhouette size. No dilated bowel. Paucity of bowel gas. Moderate colonic stool retention, predominantly right and transverse. No suspect calcification. Intact bony structures. IMPRESSION: No acute findings. 2010 [employer]- All Rights Reserved
[2017-03-03 08:14] VITALS: BP 96/63
== END 2017-03-03 08:14 | disposition home or self-care (01) ==
LOC: ER 03:56
DX: G89.18 Other acute postprocedural pain (principal); R10.84 Generalized abdominal pain; K59.00 Constipation, unspecified; I10 Essential (primary) hypertension
CPT/HCPCS: 99284; 96361; 96374; 36415; 84702; 85025; 80053; 81001; 74022; 76830; 93976; J2405; J7030

== ENCOUNTER 2017-05-26 02:00 | Emergency (ER) | payer MEDICAID ==
--- NOTE | 2017-05-26 02:35 | ER Document Report ---
ED Hand/Wrist Injury - General Mode of Arrival: Ambulatory Information source: Patient TRAVEL OUTSIDE OF THE [place] IN LAST 30 DAYS: No <JARED NICHOLAS - Last Filed: 05/26/17 05:53> <VANE LONDONO - Last Filed: 05/26/17 06:01> - General Chief Complaint: Hand Injury Stated Complaint: HAND INJURY Time Seen by Provider: 05/26/17 02:22 Notes: 27 y.o female presents to the ED with injury to her LT hand and wrist. Patient states that she was getting out of bed around 2300 last night and tripped in her sheets, hitting her hand on a metal door knob. She notes some edema and a "funny feeling" to her elbow. Patient states that she iced her hand without much relief. She has no other complaints at this time . (JARED NICHOLAS) - Related Data Allergies/Adverse Reactions: ketorolac [From Toradol] Adverse Reaction (Verified 03/03/17 05:27) NSAIDS (Non-Steroidal Anti-Inflamma Adverse Reaction (Verified 03/03/17 05:27) Past Medical History - General Information source: Patient - Social History Smoking Status: Current Every Day Smoker Cigarette use (# per day): Yes Chew tobacco use (# tins/day): No Smoking Education Provided: Yes Frequency of alcohol use: None Drug Abuse: None Lives with: Family Family History: None - Past Medical History Cardiac Medical History: Reports: Hx Hypertension Endocrine Medical History: Reports: Hx Hypothyroidism Renal/ Medical History: Reports: Hx Ovarian Cysts. Denies: Hx Peritoneal Dialysis Past Surgical History: Reports: Hx Orthopedic Surgery - Left Knee, Hx Tonsillectomy - Immunizations Hx Diphtheria, Pertussis, Tetanus Vaccination: Yes <JARED NICHOLAS - Last Filed: 05/26/17 05:53> Review of Systems - Review of Systems Constitutional: No symptoms reported EENT: No symptoms reported Cardiovascular: No symptoms reported Respiratory: No symptoms reported Gastrointestinal: No symptoms reported Genitourinary: No symptoms reported Female Genitourinary: No symptoms reported Musculoskeletal: See HPI, Other - Edema and pain to LT hand, wrist and "funny feeling in elbow". Skin: No symptoms reported Hematologic/Lymphatic: No symptoms reported Neurological/Psychological: No symptoms reported -: Yes All other systems reviewed and negative <JARED NICHOLAS - Last Filed: 05/26/17 05:53> Physical Exam <JARED NICHOLAS - Last Filed: 05/26/17 05:53> <VANE LONDONO - Last Filed: 05/26/17 06:01> - Vital signs Vitals: Temp Pulse Resp BP Pulse Ox 97.2 F 83 18 115/81 99 05/26/17 02:04 05/26/17 02:04 05/26/17 02:04 05/26/17 02:04 05/26/17 02:04 - Notes Notes: GENERAL: Alert, interacts well. No acute distress. HEAD: Normocephalic, atraumatic. EYES: Pupils equal, round, and reactive to light. Extraocular movements intact. ENT: Oral mucosa moist, tongue midline. NECK: Full range of motion. Supple. Trachea midline. LUNGS: No respiratory distress. ABDOMEN: Non-distended. EXTREMITIES: Moves all 4 extremities spontaneously. No edema. No cyanosis. Tenderness with palpation of distal radius, palmar aspect of 2nd MCP and the proximal aspect of the 2nd and 3rd metacarpals of the LUE and hand. Able to pronate and supinate wrist with pain. Able to flex and extend wrist with pain. NEUROLOGICAL: Alert and oriented x3. Normal speech. PSYCH: Normal affect, normal mood. SKIN: Warm, dry, normal turgor. No rashes or lesions noted. 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 No evidence of fracture. Patient will be placed in Deny wrap for comfort and discharged to home. (VANE LONDONO) - Vital Signs Vital signs: Temp Pulse Resp BP Pulse Ox 97.3 F 76 16 105/65 100 05/26/17 03:51 05/26/17 03:51 05/26/17 03:51 05/26/17 03:51 05/26/17 03:51 Procedures - Immobilization left wrist Pre-Proc Neuro Vasc Exam: Normal Immobilizer type: Deny wrap Performed by: PCT Post-Proc Neuro Vasc Exam: Normal, Unchanged from pre-exam Alignment checked and good: Yes <VANE LONDONO - Last Filed: 05/26/17 06:01> Discharge <JARED NICHOLAS - Last Filed: 05/26/17 05:53> <VANE LONDONO - Last Filed: 05/26/17 06:01> - Discharge Clinical Impression: Contusion of left hand Qualifiers: Encounter type: initial encounter Qualified Code(s): S60.222A - Contusion of left hand, initial encounter Condition: Stable Disposition: HOME, SELF-CARE Instructions: Contusion ([facility]) Scribe Attestation: 05/26/17 06:01 I personally performed the services described in the documentation, reviewed and edited the documentation which was dictated to the scribe in my presence, and it accurately records my words and actions. (VANE LONDONO) Scribe Documentation - Scribe Written by Scribe:: Hakan Hopper 05/26/17 0239 acting as scribe for :: Summer <JARED NICHOLAS - Last Filed: 05/26/17 05:53>
--- NOTE | 2017-05-26 02:52 | RADIOLOGY REPORT (SQ) ---
EXAM DESCRIPTION: HAND LEFT 3 VIEWS CLINICAL HISTORY: 27 years, Female, punched door COMPARISON: None. 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 Bones, joints, and soft tissues of the left hand appear otherwise intact. IMPRESSION: No acute findings.
[2017-05-26 03:58] VITALS: BP 105/65
== END 2017-05-26 03:58 | disposition home or self-care (01) ==
LOC: ER 02:00
DX: S60.222A Contusion of left hand, initial encounter (principal); W22.8XXA Striking against or struck by other objects, initial encounter; F17.210 Nicotine dependence, cigarettes, uncomplicated
CPT/HCPCS: 99283

== ENCOUNTER 2017-07-23 14:16 | Emergency (ER) | payer MEDICAID ==
[2017-07-23] MEDS ORDERED: OXYCODONE HCL IR 5 MG TABLET PO ONE (15:36)
--- NOTE | 2017-07-23 15:41 | ER Document Report ---
HPI - HPI Pain Level: 3 Notes: Patient is a 27-year-old female with a history of chronic low back pain who presents to the ED complaining of an acute exacerbation of her low back pain 1 day. Patient states that she was carrying her kids back and forth from her car to her house into daycare which are exacerbated her low back pain. Patient states the pain is to the left side and does not radiate. She is eating and drinking without difficulties. She is urinating normally and having normal bowel movements. She denies any procedures or injections to her lower back. Patient states that she has been under the care of pain management until March which is when she moved to [place] and is establishing with a new provider here. Patient states that she managed to make her remaining prescriptions that she was given in March last until yesterday. Patient states that she would like a prescription of her chronic pain medications/ narcotics. She has no other concerns or complaints at this time. Denies any headache, fever, neck pain, URI, sore throat, chest pain, palpitations, syncope , cough, shortness of breath, wheeze, dyspnea, abdominal pain, nausea/vomiting/ diarrhea, urinary retention, dysuria, hematuria, loss of control of bowel or bladder, numbness/tingling, saddle anesthesia, muscle paralysis/weakness, or rash. - ROS Systems Reviewed and Negative: Yes All other systems reviewed and negative - REPRODUCTIVE Reproductive: DENIES: : Past Medical History - Social History Smoking Status: Unknown if Ever Smoked Family History: None, Reviewed & Not Pertinent - Past Medical History Cardiac Medical History: Reports: Hx Hypertension Endocrine Medical History: Reports: Hx Hypothyroidism Renal/ Medical History: Reports: Hx Ovarian Cysts. Denies: Hx Peritoneal Dialysis Past Surgical History: Reports: Hx Orthopedic Surgery - Left Knee, Hx Tonsillectomy - Immunizations Hx Diphtheria, Pertussis, Tetanus Vaccination: Yes Vertical Provider Document - CONSTITUTIONAL Agree With Documented VS: Yes Notes: PHYSICAL EXAMINATION: GENERAL: Well-appearing, well-nourished and in no acute distress. LUNGS: Breath sounds clear to auscultation bilaterally and equal. No wheezes rales or rhonchi. HEART: Regular rate and rhythm without murmurs, rubs, gallops. ABDOMEN: Soft, nontender, nondistended abdomen. No guarding, no rebound. No masses appreciated. Normal bowel sounds present. No CVA tenderness bilaterally. No pulsatile mass Musculoskeletal: LE's b/l: FROM to passive/active. Strength 5+/5. No deficits noted. No bony tenderness of extremities. Back: FROM to passive/active. Strength 5+/5. No vertebral point tenderness, stepoffs, or deformities. No other bony tenderness, erythema, swelling, or ecchymosis. SLR negative b/l. + mild tenderness to the L-paraspinal mm b/l. Mild spasming. No SI jt tenderness. No foot drop Extremities: No cyanosis, clubbing, or edema b/l. Peripheral pulses 2+. Capillary refill less than 2 seconds. NEUROLOGICAL: Normal speech, normal gait. Normal sensory, motor exams. Reflexes 2+ b/l. PSYCH: Normal mood, normal affect. SKIN: Warm, Dry, normal turgor, no rashes or lesions noted. - INFECTION CONTROL TRAVEL OUTSIDE OF THE [place] IN LAST 30 DAYS: No Course - Re-evaluation Re-evalutation: 07/23/17 15:39 Patient is an afebrile, well-hydrated, 27-year-old female who presents to the ED with acute on chronic low back pain, suspect strain versus sprain. Vitals are acceptable. PE is otherwise unremarkable for any focal neurological deficits. Patient is ambulatory without any discomfort at this time. Patient has no red flag symptoms. Patient is requesting narcotic medication until Monday, but stated that we do not do chronic pain here. Advised patient that I will only give her the 5 mg dose of oxycodone here in the emergency department , but she will not be going home with any narcotics. Patient declined any Toradol she is allergic, Decadron, naproxen, or any muscle relaxers. Low suspicion for any meningitis, fracture, expanding/ruptured AAA, cauda equina syndrome, epidural mass lesion/abscess, herniated disc causing severe spinal stenosis, or other systemic infection at this time. Patient is aware that her condition can change from initial presentation and that she needs monitor symptoms closely for any acute changes. Recommend conservative measures for symptoms. Recheck with your PCM in 3-5 days, specialist as scheduled on Monday. Return to the ED with any worsening/concerning symptoms otherwise as reviewed discharge. Patient is in agreement. - Vital Signs Vital signs: Temp Pulse Resp BP Pulse Ox 98.6 F 84 14 132/80 H 99 04/29/18 14:27 07/23/17 14:27 07/23/17 14:27 07/23/17 14:27 07/23/17 14:27 Discharge - Discharge Clinical Impression: Low back pain Qualifiers: Chronicity: acute Back pain laterality: left Sciatica presence: without sciatica Qualified Code(s): M54.5 - Low back pain Condition: Stable Disposition: HOME, SELF-CARE Instructions: Low Back Pain ([facility]), Stretching Exercises for the Back ([facility]) Additional Instructions: Rest, Ice Tylenol/ibuprofen as needed Light stretches daily Strength exercises as able Moist heat and massage may help F/u with your PCP in 3-5 days for a recheck Keep appointment with your pain specialist on monday Consider consult(s) with Orthopedics/physical therapy for ongoing/worsening symptoms Return to the ED with any worsening symptoms and/or development of fever, headache, changes in behavior/mentation/vision/speech, chest pain, palpitations , syncope, shortness of breath, trouble breathing, abdominal pain, n/v/d, blood in stool/urine, loss of control of bowel/bladder, urinary retention, muscle weakness/paralysis, saddle anesthesia, numbness/tingling, or other worsening symptoms that are concerning to you. Forms: Elevated Blood Pressure Referrals: [facility] [Provider Group] - Follow up as needed
[2017-07-23 16:36] VITALS: BP 114/70
== END 2017-07-23 16:15 | disposition home or self-care (01) ==
LOC: ER 14:16
DX: M54.5 Low back pain (principal); G89.29 Other chronic pain; X50.0XXA Overexertion from strenuous movement or load, initial encounter; Y92.210 Daycare center as the place of occurrence of the external cause; I10 Essential (primary) hypertension
CPT/HCPCS: 99283; J3490

== ENCOUNTER 2017-08-23 18:32 | Emergency (ER) | payer OTHER, MEDICAID ==
[2017-08-23 19:32] VITALS: BP 110/72
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
== END 2017-08-23 20:41 | disposition home or self-care (01) ==
LOC: ER 18:32
DX: S16.1XXA Strain of muscle, fascia and tendon at neck level, initial encounter (principal); M25.512 Pain in left shoulder; M79.601 Pain in right arm; V59.40XA Driver of pick-up truck or van injured in collision with unspecified motor vehicles in traffic accident, initial encounter; I10 Essential (primary) hypertension
CPT/HCPCS: 99283; C1751